=== PATIENT | female | born 1950 | race Caucasian/White ===

== ENCOUNTER → 2025-03-07 09:27 | Outpatient (REF) | payer BC, SELFPAY | LOC: RAD 09:27 | PROVIDERS: ATTENDING PHYSICIAN Otolaryngology; FAMILY PHYSICIAN Family Medicine | DX: J32.0 Chronic maxillary sinusitis (principal); J32.2 Chronic ethmoidal sinusitis; R51.9 Headache, unspecified | CPT/HCPCS: 70486 ==